=== PATIENT | female | born 1945 | race Caucasian/White ===

== ENCOUNTER 2016-10-19 10:20 | Outpatient (CLI) | payer OTHER ==
[2014-06-14 15:06] VITALS: BP 139/73
[2016-10-19 11:08] LABS: eGFR (African) > 60; eGFR (Non-African) > 60
== END 2016-10-19 10:22 ==
LOC: LAB 10:20
PROVIDERS: ATTEND Family Medicine
DX: E11.9 Type 2 diabetes mellitus without complications (principal)
CPT/HCPCS: 36415; 80053; 80061; 82043; 83036

== ENCOUNTER 2017-03-24 10:41 | Outpatient (CLI) | payer OTHER ==
[2014-06-14 15:06] VITALS: BP 139/73
[2017-03-24 11:35] LABS: eGFR (African) > 60; eGFR (Non-African) > 60
== END 2017-03-24 10:42 ==
LOC: LAB 10:41
PROVIDERS: ATTEND Family Medicine
DX: E11.9 Type 2 diabetes mellitus without complications (principal)
CPT/HCPCS: 36415; 80053; 83036

== ENCOUNTER 2017-04-05 09:53 | Outpatient (CLI) | payer OTHER ==
[2014-06-14 15:06] VITALS: BP 139/73
[2017-04-05 18:19] LABS: HEPATITIS A AB, TOTAL NEGATIVE (NEGATIVE)
== END 2017-04-05 09:54 ==
LOC: LAB 09:53
PROVIDERS: ATTEND Family Medicine
DX: R79.89 Other specified abnormal findings of blood chemistry (principal); R53.82 Chronic fatigue, unspecified
CPT/HCPCS: 36415; 84443; 86704; 86706; 86708; 86709; 86803; 87340

== ENCOUNTER 2017-05-11 10:40 | Outpatient (CLI) | payer OTHER ==
[2014-06-14 15:06] VITALS: BP 139/73
[2017-05-11 11:38] LABS: eGFR (African) > 60; eGFR (Non-African) > 60
== END 2017-05-11 10:42 ==
LOC: LAB 10:40
PROVIDERS: ATTEND Family Medicine
DX: R74.8 Abnormal levels of other serum enzymes (principal)
CPT/HCPCS: 36415; 80053

== ENCOUNTER 2017-11-10 11:34 | Outpatient (CLI) | payer OTHER ==
[2014-06-14 15:06] VITALS: BP 139/73
[2017-11-10 12:28] LABS: eGFR (African) > 60; eGFR (Non-African) > 60
== END 2017-11-10 11:35 ==
LOC: LAB 11:34
PROVIDERS: ATTEND Family Medicine
DX: E11.9 Type 2 diabetes mellitus without complications (principal)
CPT/HCPCS: 36415; 80053; 80061; 82043; 83036

== ENCOUNTER 2017-12-28 11:21 | Outpatient (CLI) | payer OTHER ==
[2014-06-14 15:06] VITALS: BP 139/73
--- NOTE | 2017-12-28 16:32 | Diagnostic Imaging Report ---
FRAND[facility] BERRY [id number] [id number] Report Submission Date: Dec 28, 2017 4:15:11 PM CDT Patient Study Name: JOAN ROQUE Date: Dec 28, 2017 12:12:00 PM CDT Modality Type: US Gender: F Description: : 45 Institution: Physician: FRANDY BERRY Left venous duplex study History: Left lower extremity pain Duplex and color flow imaging was performed through the left lower extremity femoral popliteal venous system revealing normal compressibility and normal augmentation from the common femoral vein to the popliteal vein without evidence for deep venous thrombosis. The calf veins are not well visualized. Impression: No evidence for deep venous thrombosis from the common femoral vein to the popliteal vein. The calf veins are not well visualized. Electronically signed on Dec 28, 2017 4:15:11 PM CDT by: Ramona ELLISON
== END 2017-12-28 11:22 ==
LOC: RAD 11:21
PROVIDERS: ATTEND Family Medicine
DX: I82.402 Acute embolism and thrombosis of unspecified deep veins of left lower extremity (principal)
CPT/HCPCS: 93971

== ENCOUNTER 2018-05-19 16:45 | Outpatient (CLI) | payer OTHER ==
[2014-06-14 15:06] VITALS: BP 139/73
[2018-05-19 16:47] LABS: BASOPHILS % 0.3 (0.0-1.5); EOSINOPHILS % 1.2 % (0.0-6.8); MEAN CORPUSCULAR HEMOGLOBIN 31.3 pg (28.0-34.0); MONOCYTES % 1.9 % (0.0-11.0); NEUTROPHILS # 11.5 # k/uL (1.4-7.7)
[2018-05-19 16:59] LABS: eGFR (Non-African) > 60
== END 2018-05-19 16:55 ==
LOC: LABRHC 16:45
PROVIDERS: ATTEND Family Medicine
DX: E11.9 Type 2 diabetes mellitus without complications (principal)
CPT/HCPCS: 80053; 83036; 85025

== ENCOUNTER 2018-10-21 09:35 | Outpatient (CLI) | payer OTHER ==
[2014-06-14 15:06] VITALS: BP 139/73
== END 2018-10-21 09:38 ==
LOC: LAB 09:35
PROVIDERS: ATTEND Family Medicine
DX: E11.9 Type 2 diabetes mellitus without complications (principal)
CPT/HCPCS: 36415; 80053; 83036

== ENCOUNTER 2019-03-24 09:47 | Outpatient (CLI) | payer OTHER ==
[2014-06-14 15:06] VITALS: BP 139/73
[2019-03-24 11:06] LABS: HDL 45 mg/dL (>40); eGFR (Non-African) > 60
== END 2019-03-24 09:52 ==
LOC: LAB 09:47
PROVIDERS: ATTEND Family Medicine
DX: E11.9 Type 2 diabetes mellitus without complications (principal)
CPT/HCPCS: 36415; 80053; 80061; 83036; 84439; 84443; 84481